=== PATIENT | female | born 1935 | race African-American/Black ===

== ENCOUNTER → 2016-12-03 | Outpatient (CLI) | payer MEDICARE, OTHER ==
[~2016-12-03] VITALS: Ht 162.6 cm; Wt 64.4 kg
[~2016-12-03] MED LIST: AMLO2.5T2 PO; BUPIVACAINE 0.5% 50 ML VIAL. IJ ONE; IOHEXOL 300 MG/ML 10ML VIAL. INT ART ONE; LISI1TAB3 PO; SIMV20TA3 PO; methylPREDNISolone ACETATE 80 MG/ML VIAL. IM ONE
--- NOTE | 2016-12-03 12:23 | RAD ---
Indication left hip pain. Injection of the left hip for purposes of pain management was explained to the patient. The risks of infection and bleeding were outlined. The patient understood the risks associated with the procedure and wished to proceed. Initially the left femoral artery was palpated. A fluoroscopic approach was marked. It was anticipated that the femoral artery would be well away from the path of the needle into the joint. The skin was prepped and draped in the routine fashion. Local anesthesia was accomplished with 1% lidocaine. 80 mg of Depo-Medrol was mixed with 3 cc of 0.5% Sensorcaine. A 22-gauge needle was passed into the joint. Small amount of contrast was administered confirming joint placement. Sensorcaine Depo-Medrol solution was injected unremarkably. The patient tolerated the procedure well. 3 spot fluoroscopic images were obtained. Fluoroscopy time associated with the procedure was 1.8 minutes IMPRESSION: Successful injection of the left hip for purposes of pain management.
== END | disposition home or self-care (01) ==
LOC: RAD 10:17
PROVIDERS: ATTEND Nurse Practitioner Gerontology
DX: M16.12 Unilateral primary osteoarthritis, left hip (principal)
CPT/HCPCS: 20610; 77002; J1040; J3490; Q9967